=== PATIENT | female | born 1950 | race Caucasian/White ===

== ENCOUNTER → 2017-01-13 | Outpatient (CLI) | payer BC | LOC: BMCIMAGING 12:09 | PROVIDERS: ATTEND Internal Medicine | DX: R05 Cough (principal); M95.4 Acquired deformity of chest and rib ==

== ENCOUNTER → 2018-02-25 | Outpatient (CLI) | payer BC | LOC: FIMAGING 12:28 | PROVIDERS: ATTEND Internal Medicine | DX: Z12.31 Encounter for screening mammogram for malignant neoplasm of breast (principal) ==